=== PATIENT | female | born 1960 | race Caucasian/White ===

== ENCOUNTER → 2022-02-18 | Outpatient (CLI) | payer OTHER ==
[~2022-02-18] MED LIST: ENAL20TA10 PO; PIOG15TA42 PO; [UNRECOGNIZED DRUG - OTHER]; omeprozole
--- NOTE | 2022-02-18 16:27 | RAD ---
XR CHEST 2V INDICATION: BRONCHITIS COMPARISON STUDY: 01/24/2021. FINDINGS: Lungs: Elevation of the right hemidiaphragm. Right basilar subsegmental/relaxation atelectasis. No ne w consolidation. Pleura: No pleural effusion or pneumothorax. Heart and Mediastinum: The cardiomediastinal silhouette is normal. The great vessels of the thorax ar e normal. IMPRESSION: Elevation of the right hemidiaphragm with right basilar atelectasis, similar to prior exams. No new c onsolidation Electronically signed by: Adam Aldrich MD (02/18/2022 4:25 PM) [id number]
== END ==
LOC: RAD 11:13
PROVIDERS: ATTEND Physician Assistant
DX: J98.11 Atelectasis (principal); J40 Bronchitis, not specified as acute or chronic
CPT/HCPCS: 71046